=== PATIENT | female | born 1975 | race Caucasian/White ===

== ENCOUNTER 2019-08-07 19:59 | Emergency (ER) | payer BC ==
[~2019-08-07] VITALS: Ht 180.3 cm; Wt 72.6 kg
--- NOTE | 2019-08-07 20:11 | NUR ---
ED Nurse Note: Pt ambulated to ED from home c/o cut to L thumb, small lac noted, not actively bleeding. VSS. Pt aplying pressure.
--- NOTE | 2019-08-07 20:26 | Emergency Room Report ---
History of Present Illness General Chief Complaint: Laceration Source: Patient Present Illness HPI Patient presents with complaints of laceration of her left thumb Reports that she was cutting vegetable with a knife when it slipped and she sustained a laceration Denies any wrist pain denies any loss of consciousness pain is localized to the distal aspect of the thumb Pain is 8 out of 10 worse with touch Allergies: Coded Allergies: No Known Allergies (Unverified , 08/07/19) COVID-19 Screening Contact w/high risk pt: No Recent Travel to affected area: No Experienced COVID-19 symptoms?: No Patient History Past Medical History: see triage record Last Menstrual Period: na Now: No Reviewed Nursing Documentation: PMH: Agreed; PSxH: Agreed Nursing Documentation-PMH Past Medical History: No Stated History Review of Systems All Other Systems: negative except mentioned in HPI Physical Exam Vital Signs Date Time Temp Pulse Resp B/P (MAP) Pulse Ox O2 Delivery O2 Flow Rate FiO2 08/07/19 20:06 98.4 89 18 134/82 (99) 98 Room Air Sp02 EP Interpretation: reviewed, normal General Appearance: mild distress Head: normocephalic, atraumatic Eyes: bilateral eye PERRL, bilateral eye EOMI ENT: hearing grossly normal, EOM grossly intact Neck: supple Respiratory: no respiratory distress, no retraction, no accessory muscle use Gastrointestinal: non tender, soft Musculoskeletal: other - Evaluation of the left thumb distally does reveal laceration, does also appear to involve the nail, total length is approximately 1 cm. Patient is able to flex the thumb and extend without any focal deficit Neurologic: alert, oriented x3 Psychiatric: normal inspection Skin: other - Aspiration as above involving the tip of the thumb almost near amputation Lymphatic: no adenopathy Procedures Splinting Splinting : Consent: Verbal Location: Left thumb Splint: Finger splint Pre-Proc Neuro Vasc Exam: normal Post-Proc Neuro Vasc Exam: normal Patient Tolerated: Well Complications: None Laceration/Wound Repair Laceration/Wound Repair : Consent: Verbal Wound Location: upper extremity Wound's Depth, Shape: into muscle Wound Length (cm): 1 Wound Explored: clean Irrigated w/ Saline (ccs): 400 Betadine Prep?: Yes Anesthesia: 1% Lidocaine Volume Anesthetic (ccs): 3 Wound Debrided: minimal Wound Repaired With: sutures Suture Size/Type: 5:0 Number of Sutures: 2 Layer Closure?: No Sterile Dressing Applied?: Yes Patient Tolerated: Well Complications: None Progress After sedation with a digital block, patient had 2 sutures placed with appropriate approximation. Medical Decision Making Diagnostic Impression: Primary Impression: Laceration ER Course After further investigation and digital block area was cleansed and evaluated further Area required to sutures in an interrupted fashion with appropriate approximation the area was dressed appropriately a finger Splint was applied Patient is stable for close outpatient follow-up Last Vital Signs Date Time Temp Pulse Resp B/P (MAP) Pulse Ox O2 Delivery O2 Flow Rate FiO2 08/07/19 20:06 98.4 89 18 134/82 (99) 98 Room Air Status: improved Disposition: HOME, SELF-CARE Condition: Improved Additional Instructions: Patient is provided with the discharge instructions notified to follow up with primary doctor in the next 2-3 days otherwise return to the er with any worsening symptoms. Please note that this report is being documented using Cover[employer]Meds technology. This can lead to erroneous entry secondary to incorrect interpretation by the dictating instrument. Mikayla Miller DO August 07, 2019 20:26
--- NOTE | 2019-08-07 20:40 | NUR ---
ED Nurse Note: ERM Dplaced two stitches on L thumb, pt tolerated well, discharge instructions verbally confirmed
[2019-08-07] MEDS ORDERED: Neosporin Oint Ud Pkt TOPIC ONE (20:45)
[2019-08-07 20:50] VITALS: BP 134/82
--- NOTE | 2019-08-07 20:50 | NUR ---
ER DISCHARGE NOTE: Patient is cleared to be discharged per ERMD, pt is aox4, on room air, with stable vital signs. pt was given dc and prescription instructions, pt was able to verbalize understanding, pt id band removed. pt is able to ambulate with steady gait. pt took all belongings.
== END 2019-08-07 20:50 | disposition home or self-care (01) ==
LOC: EMR 20:30
DX: S61.012A Laceration without foreign body of left thumb without damage to nail, initial encounter (principal); W26.0XXA Contact with knife, initial encounter; Y92.9 Unspecified place or not applicable
CPT/HCPCS: 99283

== ENCOUNTER 2019-08-17 15:11 | Emergency (ER) | payer BC ==
[~2019-08-17] VITALS: Ht 180.3 cm; Wt 72.6 kg
[2019-08-17 15:23] VITALS: BP 117/71
--- NOTE | 2019-08-17 15:25 | Emergency Room Report ---
History of Present Illness General Chief Complaint: Wound Recheck/Suture Removal Source: Patient Present Illness HPI 44-year-old female presents to the emergency department for suture removal. Patient reports 2 out of 10 severity sensitivity/tenderness to the distal aspect of the left thumb. Patient sustained laceration while cutting vegetables approximately 10 days ago when she was seen in the ER and had sutures placed. Patient denies erythema, discharge, warmth or progressive pain. Patient reports she is right-hand dominant. Patient denies paresthesias or loss of gross motor movements of the affected extremity. No other aggravating or relieving factors at this time. Allergies: Coded Allergies: No Known Allergies (Unverified , 08/07/19) COVID-19 Screening Contact w/high risk pt: No Recent Travel to affected area: No Experienced COVID-19 symptoms?: No COVID-19 Testing performed TRANSITION COACH: No Patient History Past Medical History: see triage record Past Surgical History: none Pertinent Family History: none Last Menstrual Period: 08/04/19 Now: No Immunizations: UTD Reviewed Nursing Documentation: PMH: Agreed; PSxH: Agreed Nursing Documentation-PMH Past Medical History: No Stated History Review of Systems All Other Systems: negative except mentioned in HPI Physical Exam Vital Signs Date Time Temp Pulse Resp B/P (MAP) Pulse Ox O2 Delivery O2 Flow Rate FiO2 08/17/19 15:16 98.1 86 20 112/76 (88) 97 Room Air Sp02 EP Interpretation: reviewed, normal General Appearance: no apparent distress, alert, GCS 15, non-toxic Head: normocephalic, atraumatic Eyes: bilateral eye normal inspection, bilateral eye PERRL ENT: hearing grossly normal, normal voice Neck: full range of motion Respiratory: lungs clear, normal breath sounds, speaking full sentences Cardiovascular #1: regular rate, rhythm, normal capillary refill Gastrointestinal: normal bowel sounds, non tender, soft Musculoskeletal: normal range of motion, gait/station normal, non-tender Neurologic: alert, motor strength/tone normal, oriented x3, sensory intact, responsive, speech normal Psychiatric: judgement/insight normal Skin: wd healing/no infection noted - two sutures noted and slight scab. distal right thumb. NVI Medical Decision Making PA Attestation Dr. Garcia Is my supervising Physician whom patient management has been discussed with. Diagnostic Impression: Primary Impression: Encounter for removal of sutures ER Course 44-year-old female presents to the emergency department for suture removal. Patient reports 2 out of 10 severity sensitivity/tenderness to the distal aspect of the left thumb. Patient sustained laceration while cutting vegetables approximately 10 days ago when she was seen in the ER and had sutures placed. Patient denies erythema, discharge, warmth or progressive pain. Patient reports she is right-hand dominant. Patient denies paresthesias or loss of gross motor movements of the affected extremity. No other aggravating or relieving factors at this time. Ddx considered but are not limited to laceration, tendon injury, cellulitis, dehiscence. Vital signs: are WNL, pt. is afebrile H&PE are most consistent with: healed laceration of the Left THumb ORDERS: none required at this time, the diagnosis is clinical ED INTERVENTIONS: - 2 Sutures removed. DISCHARGE: At this time pt. is stable for d/c to home. Will provide printed patient care instructions, and any necessary prescriptions. Care plan and follow up instructions have been discussed with the patient prior to discharge. Last Vital Signs Date Time Temp Pulse Resp B/P (MAP) Pulse Ox O2 Delivery O2 Flow Rate FiO2 08/17/19 15:16 98.1 86 20 112/76 (88) 97 Room Air Disposition: HOME, SELF-CARE Condition: Stable Referrals: [facility] Patient Instructions: Suture Removal, Care After Additional Instructions: Take medications as directed. Follow up with a Primary Care Provider in 3-5 days, even if your symptoms have resolved. --Please review list of primary care clinics, if you do not already have a primary care provider Return sooner to ED if new symptoms occur, or current symptoms become worse. - Please note that this Emergency Department Report was dictated using Getixcor[employer] technician technology software, occasionally this can lead to erroneous entry secondary to interpretation by the dictation equipment. Pooja Johnson August 17, 2019 15:25
[2019-08-17 15:35] VITALS: BP 113/84
== END 2019-08-17 15:45 | disposition home or self-care (01) ==
LOC: EMR 15:38
DX: Z48.02 Encounter for removal of sutures (principal); S61.012D Laceration without foreign body of left thumb without damage to nail, subsequent encounter; W26.0XXD Contact with knife, subsequent encounter
CPT/HCPCS: 99281